=== PATIENT | female | born 1970 | race African-American/Black ===

== ENCOUNTER 2024-03-27 14:50 | Outpatient (CLI) | payer MEDICARE, MEDICAID | END 2024-03-27 14:51 | disposition home or self-care (01) | LOC: BICMAMMO 14:50 | PROVIDERS: ATTEND Nurse Practitioner Family | DX: N64.89 Other specified disorders of breast (principal); N63.15 Unspecified lump in the right breast, overlapping quadrants | CPT/HCPCS: 76642; 77065; G0279 ==